=== PATIENT | female | born 1990 | race American Indian/Alaskan Native ===

== ENCOUNTER 2016-07-30 02:36 | Outpatient (CLI) | payer MEDICAID ==
[2016-07-30 03:15] LABS: Urine Drugs of Abuse Note Disclamer
[2016-07-30 03:25] LABS: Bilirubin,Urine NEG (Negative); Blood,Urine NEG (Negative); Ketones,Urine NEG (Negative); Leukocyte Esterase,Urine NEG (Negative); Mucus,Urine 1+ /HPF; Nitrite,Urine NEG (Negative); Protein,Urine <15 mg/dL mg/dL (Negative); Urobilinogen,Urine < 2.0 mg/dL (<2.0)
[2016-07-30] MEDS ORDERED: TYLENOL PO ONE (03:51)
--- NOTE | 2016-07-31 11:02 | Ultrasound Report ---
OB ULTRASOUND - TWIN A Technique: Transabdominal ultrasound with Doppler interrogation. Gestation: Twin A Position: Breech Twin - Largest vertical pocket 3.6 cm (2-8 cm normal) Placenta: Anterior Placental Grade: 0 Heart Rate: 145 BPM Cervical length: 3.55 cm (Normal > 3 cm) NEUROANATOMY VISUALIZED: Choroid Plexus Cisterna Magnum Cerebellum Lateral Ventricle ANATOMY VISUALIZED: Stomach Kidneys Bladder Diaphragm 4 Chamber Heart Heart 3 Vessel Cord Abd. Cord Insert SPINE VISUALIZED: Longitudinal BPD: 5.4 cm = 22 w 3 d HC: 20.0 cm = 22 w 0 d AC: 17.2 cm = 22 w 1 d FL: 4.04 cm = 23 w 0 d HC/AC Ratio: 1.16 Estimated Weight: 534 grams LMP: Uncertain US Gest. Age = 22 w 2 d EDC: 10-31-16 OB ULTRASOUND Technique: Transabdominal ultrasound with Doppler interrogation. Gestation: Twin B Position: Transverse head maternal right Twin - largest vertical pocket 4.9 cm (2-8 cm normal) Placenta: Anterior Placental Grade: 0 Heart Rate: 156 BPM Cervical length: 3.55 cm (Normal > 3 cm) NEUROANATOMY VISUALIZED: Choroid Plexus Cisterna Magnum Cerebellum Lateral Ventricle ANATOMY VISUALIZED: Stomach Bladder Diaphragm 4 Chamber Heart SPINE VISUALIZED: Limited spine due to position BPD: 5.1 cm = 21 w 3 d HC: 18.4 cm = 20 w 5 d AC: 16.0 cm = 21 w 0 d FL: 3.8 cm = 22 w 0 d HC/AC Ratio: 1.16 Estimated Weight: 445 grams LMP: Uncertain US Gest. Age = 21 w 2 d EDC: 12-08-16
== END 2016-07-30 05:07 | disposition home or self-care (01) ==
LOC: TRG 02:36
PROVIDERS: ATTEND Obstetrics & Gynecology
DX: O26.892 Other specified pregnancy related conditions, second trimester (principal); O30.002 Twin pregnancy, unspecified number of placenta and unspecified number of amniotic sacs, second trimester; O32.1XX1 Maternal care for breech presentation, fetus 1; R10.9 Unspecified abdominal pain; Z3A.22 22 weeks gestation of pregnancy
CPT/HCPCS: 76805; 76810; 80307; 81001

== ENCOUNTER 2016-10-12 11:09 | Outpatient (CLI) | payer MEDICAID ==
[2016-10-12] MEDS ORDERED: LACTATED RINGERS 500 ML IV ONE (11:23)
[2016-10-12] MEDS ORDERED: LACTATED RINGERS 1,000 ML IV SCH (12:00)
[2016-10-12 12:05] LABS: Bacteria,Urine 1+ /HPF (Negative); Bilirubin,Urine NEG (Negative); Blood,Urine NEG (Negative); Ketones,Urine NEG (Negative); Leukocyte Esterase,Urine NEG (Negative); Mucus,Urine FEW /HPF; Nitrite,Urine NEG (Negative); Protein,Urine <15 mg/dL mg/dL (Negative); Urobilinogen,Urine < 2.0 mg/dL (<2.0)
[2016-10-12 12:36] VITALS: BP 134/75
== END 2016-10-12 13:21 | disposition home or self-care (01) ==
LOC: TRG 11:09
PROVIDERS: ATTEND Obstetrics & Gynecology
DX: O47.03 False labor before 37 completed weeks of gestation, third trimester (principal); Z3A.32 32 weeks gestation of pregnancy
CPT/HCPCS: 36415; 59025; 81001; 82731; 96360; J7120

== ENCOUNTER 2016-10-25 18:39 | Outpatient (CLI) | payer MEDICAID ==
[2016-10-25] MEDS ORDERED: LACTATED RINGERS 1,000 ML ONE (18:52)
[2016-10-25 19:01] VITALS: BP 137/84
[2016-10-25 19:51] LABS: Hemoglobin 9.5 gm/dl (10.1-14.3); Mean Corpuscular HGB Conc 31 % (30-34); Platelet Count 288 K/mm3 (140-440); Red Blood Count 4.72 M/mm3 (3.65-5.03); White Blood Count 9.4 K/mm3 (4.5-11.0)
[2016-10-25 19:52] LABS: Mean Corpuscular Hemoglobin 20 pg (28-32); Mean Corpuscular Volume 66 fl (79-97); Red Cell Distribution Width 22.3 % (13.2-15.2)
[2016-10-25] MEDS ORDERED: LACTATED RINGERS 1,000 ML IV ONE (20:19)
[2016-10-25] MEDS ORDERED: VISTARIL PO ONE (21:00)
[2016-10-25] MEDS ORDERED: BRETHINE SUB-Q SCH (21:00)
--- NOTE | 2016-10-26 09:07 | Ultrasound Report ---
ULTRASOUND OB LIMITED History: well being Technique: Transabdominal ultrasound with Doppler interrogation. TWIN A Position: Cephalic Amniotic Fluid: Normal SADIA = 4.2 cm largest vertical pocket Heart Rate: 135 BPM TWIN B Gestation: Cephalic Position: Normal Amniotic Fluid: Normal SADIA = 5.6 cm largest vertical pocket Heart Rate: 135 BPM
--- NOTE | 2016-10-26 09:09 | Ultrasound Report ---
ULTRASOUND BIOPHYSICAL PROFILE: ULTRASOUND OB BPP ADD EXAM History: well being Technique: Transabdominal ultrasound with Doppler interrogation. TWIN A 2 - breathing movements 2 - movements 2 - posture and tone 2 - Qualitative amniotic fluid volume 8 - TOTAL SCORE OF POSSIBLE 8 Heart Rate (bpm) 135 TWIN B 2 - breathing movements 2 - movements 2 - posture and tone 2 - Qualitative amniotic fluid volume 8 - TOTAL SCORE OF POSSIBLE 8 Heart Rate (bpm) 135
== END 2016-10-25 23:00 | disposition home or self-care (01) ==
LOC: TRG 18:39 → LD 18:41 → TRG 23:00
PROVIDERS: ATTEND Obstetrics & Gynecology
DX: O30.003 Twin pregnancy, unspecified number of placenta and unspecified number of amniotic sacs, third trimester (principal); O47.03 False labor before 37 completed weeks of gestation, third trimester; Z3A.34 34 weeks gestation of pregnancy
CPT/HCPCS: 36415; 76815; 76819; 85027; 86850; 86900; 86901; J3105; J7120; 96360; 96361; 96372; Q0177

== ENCOUNTER 2016-11-07 09:16 | Inpatient (IN) | payer MEDICAID ==
[2016-11-07] MEDS ORDERED: REGLAN IV NR (09:20)
[2016-11-07] MEDS ORDERED: PEPCID IV NR (09:20)
--- NOTE | 2016-11-07 09:46 | History and Physical Report ---
History of Present Illness Date of examination: 11/07/16 Date of admission: 11/07/16 09:16 Chief complaint: Here for Primary c/s for twins with malpresentation, desires infertility History of present illness: This is a 25 yo G 3P2 at 36+ weeks with twins with discordant growth follwed by MFM. Recommnedation of delivery between 36-37+6 weeks. Her course began at 9 weeks. She has a hx of preeclampsia on baby ASA. reolved hyperemesis. Patient has severe anemia on iron tid . Dx this with twin B IUGR. Past History Past Medical History: hypertension, other (anxiety , depression ) Past Surgical History: no surgical history Family/Genetic History: heart disease (hypercholesterolemia), hypertension, cancer (breast and prostate) Social history: no significant social history, . denies: smoking, alcohol abuse, prescription drug abuse - Obstetrical History Expected Date of Delivery: 12/02/16 Actual Gestation: 36 Week(s) 3 Day(s) : 3 Para: 2 Hx # Term Pregnancies: 2 Number of Pregnancies: 0 Spontaneous Abortions: 0 Induced : 0 Number of Living Children: 0 Medications and Allergies Allergies Allergy/AdvReac Type Severity Reaction Status Date / Time No Known Allergies Allergy Verified 10/03/16 15:59 Active Meds: Active Medications Citric Acid/Sodium Citrate (Bicitra) 30 ml PO ONCE NR Stop: 11/07/16 18:00 Famotidine (Pepcid) 20 mg IV ONCE NR Stop: 11/07/16 18:00 Cefazolin Sodium (Ancef/Sterile Water 2 Gm/20 Ml) 2 gm in 20 mls @ 80 mls/hr IV PREOP NR PRN Reason: Protocol Stop: 11/07/16 18:00 Lactated Ringer's (Lactated Ringers) 1,000 mls @ 2,250 mls/hr IV PREOP MELANIE Stop: 11/08/16 10:27 Oxytocin/Sodium Chloride (Pitocin/Ns 20 Unit/1000ml Drip) 20 units in 1,000 mls @ 0 mls/hr IV TITR MELANIE PRN Reason: As Directed Metoclopramide HCl (Reglan) 10 mg IV ONCE NR Stop: 11/07/16 18:00 Review of Systems Constitutional: weight gain Eyes: deferred Ears, nose, mouth and throat: deferred Breasts: deferred Rectal Exam: deferred Integumentary: deferred - Physical Exam Breasts: Positive: normal Cardiovascular: Regular rate, Normal S1 Lungs: Positive: Clear to auscultation, Normal air movement Abdomen: Positive: normal appearance, soft, normal bowel sounds. Negative: distention, tenderness Genitourinary (Female): Positive: normal external genitalia, normal perenium Vulva: both: normal Vagina: Positive: normal moisture Uterus: Positive: normal size Anus/Rectum: Positive: normal perianal skin Extremities: Positive: normal Deep Tendon Reflex Grade: Normal +2 - Obstetrical FHR: category 1 Results All other labs normal. Assessment and Plan A/P HD#1 scheduled primary c/s and btl 1. admision labs 2. cross and match last hemoglobin 8.9 3. consents signed and discussion of r/b/a of procedure which include bleeding infection damage to pelvic and non pelvic organs risk of hysterectomy , 4. will proceed with scheuled c/s and BTL
[2016-11-07] MEDS ORDERED: ANCEF/STERILE WATER 2 GM/20 ML 2 GM/20 ML SYRINGE IV NR (10:00)
[2016-11-07] MEDS ORDERED: PITOCin/NS 20 UNIT/1000ML DRIP 20 UNITS/1,000 ML BAG IV SCH ×2 (10:00→14:00)
[2016-11-07] MEDS ORDERED: BICITRA PO NR (10:00)
[2016-11-07 10:18] LABS: Hematocrit 30.3 % (30.3-42.9); Hemoglobin 9.2 gm/dl (10.1-14.3); Mean Corpuscular HGB Conc 31 % (30-34); Mean Corpuscular Hemoglobin 19 pg (28-32); Mean Corpuscular Volume 63 fl (79-97); Platelet Count 272 K/mm3 (140-440); Red Blood Count 4.81 M/mm3 (3.65-5.03); Red Cell Distribution Width 22.4 % (13.2-15.2); White Blood Count 10.7 K/mm3 (4.5-11.0)
[2016-11-07] MEDS: LACTATED RINGERS 1,000 ML IV SCH ×2 (10:30→10:50)
--- NOTE | 2016-11-07 10:46 | Anesthesia Day of Surgery ---
Anesthesia Day of Surgery - Day of Surgery Patient Examined: Yes Patient H&P Reviewed: Yes Patient is NPO: Yes
--- NOTE | 2016-11-07 10:46 | Anesthesia Consultation ---
Anesthesia Consult and Med Hx Date of service: 11/07/16 - Airway Anesthetic Teeth Evaluation: Good (braces) ROM Head & Neck: Adequate Mental/Hyoid Distance: Adequate Mallampati Class: Class II Intubation Access Assessment: Probably Good - Pre-Operative Health Status ASA Pre-Surgery Classification: ASA2 Proposed Anesthetic Plan: Epidural, Spinal - Pulmonary Hx Asthma: No COPD: No Hx Pneumonia: No - Cardiovascular System Hx Hypertension: No - Central Nervous System Hx Seizures: No Hx Psychiatric Problems: No - Endocrine Hx Renal Disease: No Hx End Stage Renal Disease: No Hx Hypothyroidism: No Hx Hyperthyroidism: No - Hematic Hx Anemia: Yes (transfused 3 weeks ago) Hx Sickle Cell Disease: No - Other Systems Hx Alcohol Use: No - Additional Comments Anesthesia Medical History Comments: twins, breeched
[2016-11-07 10:51] LABS: Anisocytosis 2+; Basophils % (Manual) 0 % (0.0-1.8); Blastocytes % (Manual) 0 %; Elliptocytes 1+; Eosinophils % (Manual) 0 % (0.0-4.3); Hypochromasia 1+; Microcytosis 1+; Ovalocytes 1+; Poikilocytosis 1+; Polychromasia 1+; Tear Drop Cells 1+
[2016-11-07 10:52] LABS: Schistocytes Rare; Target Cells 1+
[2016-11-07 10:53] LABS: Acanthocytes Rare; Diff Status Complete; Giant Platelets Rare
[2016-11-07] MEDS ORDERED: NUBAIN IV PRN (11:00)
[2016-11-07] MEDS ORDERED: NACL 0.9% 500 ML 500 ML IV NR (11:00)
[2016-11-07] MEDS ORDERED: NARCAN 0.4 MG/1 ML IV PRN ×2 (11:00→13:32)
[2016-11-07] MEDS ORDERED: ZOFRAN IV PRN ×2 (11:00→13:32)
[2016-11-07] MEDS ORDERED: SODIUM CHLORIDE FLUSH SYRINGE 10 ML IV PRN (11:00)
[2016-11-07] MEDS ORDERED: TORADOL IV PRN ×2 (11:00→13:32)
[2016-11-07] MEDS ORDERED: MORPHINE ONE (11:43)
[2016-11-07] MEDS ORDERED: NACL 0.9% IR ONE (12:00)
[2016-11-07] MEDS ORDERED: WATER FOR IRRIG STERILE IR ONE (12:00)
[2016-11-07] MEDS ORDERED: ePHEDrine SULFATE ONE (12:02)
[2016-11-07] MEDS ORDERED: XYLOCAINE MPF 2% ONE (12:46)
[2016-11-07] MEDS ORDERED: NACL 0.9% 1000 ML 1,000 ML ONE ×2 (12:56→13:27)
[2016-11-07] MEDS ORDERED: ZOFRAN ONE (12:59)
[2016-11-07] MEDS ORDERED: PHENERGAN PR PRN (13:32)
[2016-11-07] MEDS ORDERED: SENOKOT PO PRN (13:32)
[2016-11-07] MEDS ORDERED: PERCOCET 5/325 PO PRN (13:32)
[2016-11-07] MEDS ORDERED: ANUCORT-HC PR PRN (13:32)
[2016-11-07] MEDS ORDERED: TUCKS PAD TP PRN (13:32)
[2016-11-07] MEDS ORDERED: MORPHINE IV PRN (13:32)
[2016-11-07] MEDS ORDERED: TYLENOL PO PRN (13:32)
[2016-11-07] MEDS ORDERED: LANSINOH TP PRN (13:32)
--- NOTE | 2016-11-07 13:47 | Procedure Note ---
OB Delivery Note - Delivery Date of Delivery: 11/07/16 Surgeon: DIRK DAVENPORT Estimated blood loss: other (800cc) - Section Preop diagnosis: other (twins) Postop diagnosis: same section procedure: primary low transverse Disposition: PACU Complications: none - Infant A at 1 minute: 3 at 5 minutes: 7 (3,7,9) Gender: Male B at 1 minute: 8 at 5 minutes: 9 Infant Gender: Female
--- NOTE | 2016-11-07 13:57 | Operative Report ---
Operative Report Operative Report: PREOPERATIVE DIAGNOSES: 1. Intrauterine at 36 weeks with twins 2. Malpresentation of the second tube transverse 3. Discordant growth 4. Twin b IUGR 5. Desires permanent sterilization POSTOPERATIVE DIAGNOSES: 1.-5 QUINTON PROCEDURE PERFORMED: Primary low-transverse section ; Bilateral salpingectomy ANESTHESIA: Spinal ESTIMATED BLOOD LOSS: 800 mL. COMPLICATIONS: None. FINDINGS: Male in cephalic presentation, Twin A with body cord , weight 6 pounds 15 ounces. Apgars were 3 at 1 minute and 7 at 5 minutes and 9 Female infant transverse delivered compound of head and left foot. Normal uterus, tubes , and ovaries were noted. INDICATIONS: The patient is a 26-year-old 3, para 2 female, who presented for scheduled . The procedure was described to the patient in detail including possible risks of bleeding, infection, injury to surrounding organs, and possible need for further surgery. Informed consent was obtained prior to proceeding with the procedure. PROCEDURE NOTE: The patient was taken to the operating room where spinal anesthesia was found to be adequate. The patient was prepped and draped in the usual sterile fashion in the dorsal supine position with a left-figueroa tilt. A Pfannenstiel skin incision was made with the scalpel and carried through to the underlying layer of fascia using the Bovie. The fascia was incised in the midline and extended laterally using Vora scissors. Kenia clamps were used to elevate the superior aspect of the fascial incision, which was elevated, and the underlying rectus muscles were dissected off bluntly and using Vora scissors. Attention was then turned to the inferior aspect of the fascial incision, which in similar fashion was grasped with Kenia clamps, elevated, and the underlying rectus muscles were dissected off bluntly and using Vora scissors. The rectus muscles were dissected in the midline. The peritoneum was bluntly dissected, entered, and extended superiorly and inferiorly with good visualization of the bladder. The bladder blade was inserted. The vesicouterine peritoneum was identified with pickups and entered sharply using Metzenbaum scissors. This incision was extended laterally and the bladder flap was created digitally. The bladder blade was reinserted. The lower uterine segment was incised in a transverse fashion using the scalpel and extended using manual traction. Clear fluid was noted. The infant was subsequently delivered atraumatically. The nose and mouth were bulb suctioned. The cord was clamped and cut. The was subsequently handed to the awaiting nursery nurse. Baby B was delivered cephalic with compound foot atraumatically.The cord cut and clamped. The nose and mouth bulb suctioned and handed to awaiting winder tender . The uterus was exteriorized. The uterine incision was closed with 2-0 vicryl with running locked stitch. a figure of eight closed an extension in the left porition of the lower uterine segment . Tessel placed for excellent hemostasis. The right fallopian tube was visualized and grasped with a ring clamp and then Etta clamps and followed to its fimbriated end. The portion of the fallopian tube was elevated and ligasure used to remove entire portion ot the tube . . A similar procedure was done on the left. The rectus muscle used 3-0 vicryl for reapproximation, , Fascia were closed in one layer using 0 PDS in a running nonlocked fashion. The subcutatneous closed with running nonlocked 3-0 vicryl sutures. The skin edges were reapproximated using a subcuticular stitch of 4-0 with Rusty needle . A sterile dressing was applied. The patient was taken to the recovery room in stable condition.. Sponge, lap, and instrument counts were correct x2. The patient was stable at the completion of the procedure and was subsequently transferred to the recovery room in stable condition.
[2016-11-07] MEDS ORDERED: SODIUM CHLORIDE FLUSH SYRINGE 10 ML IV SCH (14:00)
[2016-11-07] MEDS: DILAUDID IV PRN ×2 (14:45→21:24)
[2016-11-07] MEDS: MORPHINE IV PRN (16:18)
[2016-11-07 17:05] LABS: Bacteria,Urine 1+ /HPF (Negative); Bilirubin,Urine NEG (Negative); Blood,Urine MOD (Negative); Ketones,Urine NEG (Negative); Leukocyte Esterase,Urine NEG (Negative); Mucus,Urine FEW /HPF; Nitrite,Urine NEG (Negative); Protein,Urine <15 mg/dL mg/dL (Negative); Urobilinogen,Urine < 2.0 mg/dL (<2.0); WBC,Urine < 1.0 /HPF (0.0-6.0)
[2016-11-07] MEDS: TORADOL IV PRN (17:05)
[2016-11-07 17:19] LABS: Alanine Aminotransferase 7 units/L (7-56); Lactate Dehydrogenase 265 units/L (91-180)
[2016-11-07 17:27] LABS: Mean Corpuscular HGB Conc 30 % (30-34); Red Blood Count 4.48 M/mm3 (3.65-5.03); White Blood Count 14.8 K/mm3 (4.5-11.0)
[2016-11-07 17:29] LABS: Hematocrit 28.7 % (30.3-42.9); Hemoglobin 8.6 gm/dl (10.1-14.3); Mean Corpuscular Hemoglobin 19 pg (28-32); Mean Corpuscular Volume 64 fl (79-97); Platelet Count 227 K/mm3 (140-440); Red Cell Distribution Width 22.4 % (13.2-15.2)
[2016-11-07] MEDS ORDERED: PHENERGAN PO PRN (19:07)
[2016-11-07] MEDS ORDERED: D5LR 1,000 ML IV SCH (20:00)
[2016-11-07] MEDS: BENADRYL IV PRN (21:25)
[2016-11-08] MEDS: TORADOL IV PRN ×2 (00:53→08:07)
[2016-11-08 01:28] LABS: Hematocrit 25.1 % (30.3-42.9); Hemoglobin 7.6 gm/dl (10.1-14.3)
[2016-11-08] MEDS: MORPHINE IV PRN (03:46)
[2016-11-08] MEDS: BENADRYL IV PRN (03:47)
[2016-11-08] MEDS ORDERED: BOOSTRIX IM ONE (06:00)
[2016-11-08] MEDS: MYLICON PO PRN ×2 (08:06→22:37)
[2016-11-08] MEDS: FEOSOL PO SCH (09:24)
[2016-11-08] MEDS: PRENATAL VITAMIN PO SCH (09:24)
--- NOTE | 2016-11-08 11:38 | Progress Note ---
Assessment and Plan A: POD#1 s/p primary section with bilateral salpingectomy, slow return of bowel function, asymptomatic anemia P: Milk of magnesia. Abdominal binder. Routine postoperative care. Subjective - Subjective Date of service: 11/08/16 Principal diagnosis: s/p primary section, bilateral salpingectomy Interval history: Pt reports "underlying nausea" . She does not want regular food. Patient reports: appetite normal, voiding normally, pain well controlled, no flatus, no bowel movement : doing well Objective - Vital Signs Latest vital signs: Vital Signs Temp Pulse Pulse Resp BP BP 11/08/16 07:47 98.8 F 76 20 130/84 11/08/16 04:15 98.3 F 66 20 137/83 11/08/16 00:00 98.4 F 91 H 20 114/76 11/07/16 20:00 98.4 F 79 20 122/65 11/07/16 15:30 97.6 F 67 20 136/80 11/07/16 14:45 17 11/07/16 13:40 97.6 F Intake and Output 11/07/16 11/08/16 11/08/16 22:59 06:59 14:59 Intake Total 815 1230 480 Output Total 1250 1400 Balance -435 -170 480 Intake: IV 375 750 D5lr 1,000 ml @ 125 mls/ 375 750 hr IV DIRECT MELANIE Rx#: [id number] Oral 440 480 480 Output: Urine 1250 1400 Indwelling Catheter 1050 600 Void 800 Other: Total, Intake Amount 240 240 480 Total, Output Amount 300 800 # Voids Void 1 1 - Exam Breasts: Present: deferred Cardiovascular: Present: Regular rate Lungs: Present: Clear to auscultation Abdomen: Present: soft, distention (moderate), abnormal bowel sounds ( hypoactive ) Uterus: Present: fundal height at umbilicus Extremities: Present: normal Incision: Present: dressed - Labs Labs: Abnormal lab results 11/07/16 11/07/16 11/07/16 Range/Units 09:40 16:30 17:09 WBC 14.8 H (4.5-11.0) K/mm3 Hgb 8.6 L (10.1-14.3) gm/dl Hct 28.7 L (30.3-42.9) % MCV 64 L (79-97) fl MCH 19 L (28-32) pg RDW 22.4 H (13.2-15.2) % Creatinine 0.5 L (0.7-1.2) mg/dL Lactate Dehydrogenase 265 H (91-180) units/L Crossmatch See Detail 11/08/16 Range/Units 01:14 WBC (4.5-11.0) K/mm3 Hgb 7.6 L (10.1-14.3) gm/dl Hct 25.1 L (30.3-42.9) % MCV (79-97) fl MCH (28-32) pg RDW (13.2-15.2) % Creatinine (0.7-1.2) mg/dL Lactate Dehydrogenase (91-180) units/L Crossmatch
[2016-11-08] MEDS ORDERED: DULCOLAX PR PRN (11:45)
[2016-11-08] MEDS: MILK OF MAGNESIA PO SCH ×3 (12:36→23:41)
[2016-11-08] MEDS: NORCO 5/325 PO PRN ×3 (12:40→23:41)
[2016-11-08] MEDS ORDERED: M-M-R II VACCINE SUB-Q ONE (13:38)
--- NOTE | 2016-11-08 13:47 | Progress Note ---
Subjective Date of service: 11/08/16 Principal diagnosis: s/p primary section, bilateral salpingectomy Interval history: 1st POD after Patient is in the bed, comfortable. Pain is well under control. No nausea or vomiting. Some pruritus is partially controlled with Benadryl. Ambulated well. No residual neurological deficit. No anesthesia complications. Objective - Constitutional Vitals: Vital Signs - 12hr 11/08/16 11/08/16 11/08/16 04:15 07:47 11:45 Temperature 98.3 F 98.8 F 98.9 F Pulse Rate [ 76 84 Left Radial] Pulse Rate [ 66 Right] Respiratory 20 20 20 Rate Blood Pressure 130/84 124/74 [Left Arm] Blood Pressure 137/83 [Right Arm] - Labs CBC & Chem 7: 11/08/16 01:14 11/07/16 16:30 Labs: Abnormal lab results 11/07/16 11/07/16 11/08/16 Range/Units 16:30 17:09 01:14 WBC 14.8 H (4.5-11.0) K/mm3 Hgb 8.6 L 7.6 L (10.1-14.3) gm/dl Hct 28.7 L 25.1 L (30.3-42.9) % MCV 64 L (79-97) fl MCH 19 L (28-32) pg RDW 22.4 H (13.2-15.2) % Creatinine 0.5 L (0.7-1.2) mg/dL Lactate Dehydrogenase 265 H (91-180) units/L
[2016-11-08] MEDS: PERCOCET 5/325 PO PRN (20:08)
[2016-11-09] MEDS: PERCOCET 5/325 PO PRN ×4 (02:06→22:38)
[2016-11-09] MEDS: MILK OF MAGNESIA PO SCH ×3 (06:01→20:18)
[2016-11-09] MEDS: NORCO 5/325 PO PRN ×3 (06:01→18:04)
[2016-11-09] MEDS: PRENATAL VITAMIN PO SCH (09:22)
[2016-11-09] MEDS: FEOSOL PO SCH (09:22)
--- NOTE | 2016-11-09 09:36 | Progress Note ---
Assessment and Plan A: POD#2 s/p primary section with bilateral salpingectomy, slow return of bowel function, asymptomatic anemia P: Magnesium citrate. Routine postop care Subjective - Subjective Date of service: 11/09/16 Principal diagnosis: s/p primary section, bilateral salpingectomy Interval history: Still not passing flatus. Patient reports: appetite normal, voiding normally, pain well controlled, ambulating normally, no flatus, no bowel movement, no nauseated : doing well Objective - Vital Signs Latest vital signs: Vital Signs Temp Pulse Resp BP 11/09/16 08:57 98.2 F 87 18 140/72 11/09/16 01:12 97.7 F 85 20 143/79 11/08/16 16:30 97.3 F L 84 20 132/82 11/08/16 11:45 98.9 F 84 20 124/74 Intake and Output 11/08/16 11/09/16 11/09/16 22:59 06:59 14:59 Intake Total 720 Balance 720 Intake: Oral 720 Other: Total, Intake Amount 240 # Voids Void 1 - Exam Breasts: Present: deferred Cardiovascular: Present: Regular rate Lungs: Present: Clear to auscultation Abdomen: Present: soft, distention (moderate ) Uterus: Present: fundal height at umbilicus Extremities: Present: edema Incision: Present: intact
[2016-11-09] MEDS ORDERED: CITRATE OF MAGNESIA PO ONE (10:30)
[2016-11-09] MEDS ORDERED: LASIX IV ONE (10:30)
[2016-11-09] MEDS: MYLICON PO PRN (16:05)
[2016-11-09] MEDS: MOTRIN PO PRN (20:28)
--- NOTE | 2016-11-10 08:11 | Progress Note ---
Assessment and Plan A/P POD#3 s/p primary c/s , chronic anemia , B/L salpingectomy patient improving had 2 bm yesterday vss ambulating without assistance denies n,v,f, chills H 9-7.6 asymptoomatic denies blood transfusion will give iron tid meets criteria for d/c to f/u in 1 week in the clinic Subjective - Subjective Date of service: 11/10/16 Principal diagnosis: s/p primary section, bilateral salpingectomy Interval history: This is a 25 yo G 3P2 at 36+ weeks with twins with discordant growth follwed by MFM. Recommnedation of delivery between 36-37+6 weeks. Her course began at 9 weeks. She has a hx of preeclampsia on baby ASA. reolved hyperemesis. Patient has severe anemia on iron tid . Dx this with twin B IUGR. Patient reports: appetite normal, voiding normally, pain well controlled, flatus , bowel movement, ambulating normally [place]: doing well, bottle feeding Objective - Vital Signs Latest vital signs: Vital Signs Temp Pulse Pulse Resp BP BP 11/09/16 23:45 97.7 F 76 20 121/73 11/09/16 16:00 97.0 F L 112 H 18 123/62 11/09/16 08:57 98.2 F 87 18 140/72 Intake and Output 11/09/16 11/10/16 11/10/16 22:59 06:59 14:59 Intake Total 240 480 Balance 240 480 Intake: Oral 240 480 Other: Total, Intake Amount 240 240 # Voids Void 1 1 - Exam Breasts: Present: normal Cardiovascular: Present: Regular rate, Normal S1 Lungs: Present: Clear to auscultation, Normal air movement Abdomen: Present: normal appearance, soft, normal bowel sounds. Absent: distention, tenderness, guarding Vulva: both: normal Uterus: Present: normal, firm, fundal height below umbilicus (4cm below). Absent: bogginess, tenderness Extremities: Present: normal, edema (+1) Deep Tendon Reflex Grade: Normal +2 Incision: Present: normal, dry, intact
[2016-11-10 08:12] VITALS: BP 136/80
--- NOTE | 2016-11-10 08:13 | Discharge Summary ---
Providers - Providers Date of Admission: 11/07/16 09:16 Date of discharge: 11/10/16 Attending physician: ALENA CARPENTER MD Primary care physician: RAMON KIDD Hospitalization Reason for admission: section Delivery: Procedure: primary low transverse Episiotomy: none Laceration: none Incision: normal, dry, intact Discharge diagnosis: IUP at term delivered (for twins ) [place] baby: twins Condition at discharge: Good Disposition: DISCHARGED TO HOME OR SELFCARE Plan - Discharge Medications Prescriptions: Docusate Sodium [Colace] 100 mg PO BID PRN #60 capsule PRN Reason: Constipation Ferrous Sulfate [Feosol 325 MG tab] 325 mg PO TID #90 tablet Ibuprofen [Motrin] 800 mg PO Q8HR PRN #30 tablet PRN Reason: Pain oxyCODONE /ACETAMINOPHEN [Percocet 5/325] 1 tab PO Q6HR PRN #40 tablet PRN Reason: Pain Vit-Fe Fumar-FA [ Vitamin] 1 tab PO QDAY #30 tablet - Provider Discharge Summary Activity: routine, no sex for 6 weeks Diet: routine Instructions: routine Additional instructions: [] Smoking cessation referral if applicable(refer to patient education folder for contact #) [] Refer to [facility] Booklet Call your doctor immediately for: * Fever > 100.5 * Heavy vaginal bleeding ( >1 pad per hour) * Severe persistent headache * Shortness of breath * Reddened, hot, painful area to leg or breast * Drainage or odor from incision. * Keep incision clean and dry at all times and follow doctor's instructions regarding bathing/showering - Follow up plan Follow up: RAMON KIDD MD [Primary Care Provider] - 7 Days
[2016-11-10] MEDS: NORCO 5/325 PO PRN (12:51)
[2016-11-10] MEDS: MOTRIN PO PRN (12:51)
== END 2016-11-10 01:55 | disposition home or self-care (01) | DRG 765 ==
LOC: APU 09:16 → OB 16:07
PROVIDERS: ADMIT Obstetrics & Gynecology; ATTEND Obstetrics & Gynecology
PROC: 10D00Z1 Extraction of Products of Conception, Low, Open Approach (ICD-10-PCS; principal; 2016-11-07)
PROC: 0UT70ZZ Resection of Bilateral Fallopian Tubes, Open Approach (ICD-10-PCS; 2016-11-07)
DX: O30.003 Twin pregnancy, unspecified number of placenta and unspecified number of amniotic sacs, third trimester (principal); O16.4 Unspecified maternal hypertension, complicating childbirth; O36.5932 Maternal care for other known or suspected poor fetal growth, third trimester, fetus 2; O99.344 Other mental disorders complicating childbirth; F32.9 Major depressive disorder, single episode, unspecified; O32.2XX0 Maternal care for transverse and oblique lie, not applicable or unspecified; O99.02 Anemia complicating childbirth; D64.9 Anemia, unspecified; Z3A.36 36 weeks gestation of pregnancy; Z37.2 Twins, both liveborn
CPT/HCPCS: 36415; 81001; 82565; 83615; 84450; 84460; 84550; 85007; 85014; 85018; 85025; 85027; 86850; 86900; 86901; 86920; 88302; 88307; 99211; C9250; G0463; J0690; J1170; J1200; J1885; J1940; J2270; J2405; J2590; J2765; J7030; J7120; J7121